=== PATIENT | female | born 1975 | race Caucasian/White ===

== ENCOUNTER 2016-09-29 21:22 | Inpatient (IN) | payer BC, OTHER ==
[~2016-09-29] VITALS: Ht 162.6 cm; Wt 61.4 kg
[~2016-09-29 21:22] MED LIST: DITROPAN XL10 MG PO; FLEXERIL 1010 MG/TAB PO; FLEXERIL10 MG PO; LORTAB 5/500 501 TAB PO; NATURE'S BLEND160 MG PO; ZEGERID 20 MG-11 CAP PO; [UNRECOGNIZED DRUG - OTHER]
[2016-09-29 21:52] LABS: BASO % 0.4 % (0.0-2.0); EOS # 0.1 (0.0-0.7); EOS % 0.6 % (0-4.0); GRAN # 6.1 (1.4-6.5); GRAN % 63.2 % (42.2-75.2); HEMATOCRIT 40.5 % (37.0-47.0); HEMOGLOBIN 14.2 g/dl (12.5-16.0); LYMPH # 2.9 (1.2-3.4); LYMPH % 30.1 % (20.0-51.0); MEAN CELL VOLUME 85 fl (80.0-100.0); MEAN CORPUSCULAR HEMOGLOBIN 30 pg (27.0-31.0); MEAN CORPUSCULAR HGB CONC 35 g/dl (33.0-37.0); MEAN PLATELET VOLUME 12.6 fl (7.4-10.4); MONO # 0.5 (0.1-0.6); MONO % 5.4 % (1.7-9.3); PLATELET COUNT 209 K/mm3 (130-400); RED BLOOD COUNT 4.74 M/mm3 (4.10-5.30); REDCELL DISTRIBUTION WIDTH-CV 11.7 % (11.5-14.5); WHITE BLOOD COUNT 9.6 K/mm3 (4.8-10.8)
[2016-09-29 22:15] LABS: ALANINE AMINOTRANSFERASE 24 U/L (9-52); ALKALINE PHOSPHATASE 73 U/L (50-136); ANION GAP 14 mmol/L (7-16); BILIRUBIN,TOTAL 0.9 mg/dL (0.0-1.0); BLOOD UREA NITROGEN 20 mg/dL (7-17); CALCIUM 9.9 mg/dL (8.4-10.2); CARBON DIOXIDE 19 mmol/L (22-30); CHLORIDE 108 mmol/L (98-107); GLUCOSE 106 mg/dL (74-106); LIPASE 240 U/L (23-300); POTASSIUM 3.4 mmol/L (3.4-5.0); SODIUM 141 mmol/L (137-145); TOTAL PROTEIN 8.3 gm/dL (6.4-8.2)
[2016-09-29 22:30] LABS: PROLACTIN 65.1 ng/mL (3.0-18.6)
[2016-09-29 22:35] LABS: ACETAMINOPHEN < 10 ug/mL (10-30); SALICYLATE < 1.0 mg/dL
[2016-09-29 22:47] LABS: ADJUSTED CALCIUM 9.3 mg/dL (8.4-10.2); ALBUMIN 4.8 gm/dL (3.5-5.0); CREATININE, serum 0.81 mg/dL (0.52-1.25)
[2016-09-29 22:49] LABS: C-REACTIVE PROTEIN < 0.5 mg/dL (0.0-0.9)
[2016-09-29 23:03] LABS: TROPONIN-I < 0.012 ng/mL (0.000-0.034)
[2016-09-29 23:30] LABS: PH 7 (5-8); SQUAMOUS EPITHELIAL 0-2 /hpf; URINE APPEARANCE Clear; URINE BACTERIA None Seen /hpf; URINE BILIRUBIN Negative (NEGATIVE); URINE BLOOD Negative (NEGATIVE); URINE COLOR Yellow; URINE GLUCOSE Negative (NEGATIVE); URINE KETONE 2+ (NEGATIVE); URINE RBC 0-2 /hpf; URINE UROBILINOGEN Negative (NEGATIVE)
[2016-09-29 23:37] LABS: AMPHETAMINE URINE NEGATIVE; BARBITURATES URINE NEGATIVE; BENZODIAZEPINES URINE POSITIVE; BUPRENORPHINE URINE NEGATIVE; METHADONE URINE NEGATIVE; OPIATES URINE NEGATIVE; OXYCODONE URINE NEGATIVE; PHENCYCLIDINE URINE NEGATIVE; PROPOXYPHENE URINE NEGATIVE; THC CANNABINOIDS URINE POSITIVE
[2016-09-30] VITALS (641 sets, daily range): BP systolic 91–130; BP diastolic 55–94; PULSE 52–61; TEMP 97–98.6; O2SAT 90–100
[2016-10-01 03:37] VITALS: BP 107/68; PULSE 57; TEMP 97.9
[2016-10-01 04:52] VITALS: BP 139/90; PULSE 74; TEMP 97.8
[2016-10-01 05:32] LABS: MAGNESIUM 2.2 mg/dL (1.6-2.3)
[2016-10-01 05:46] LABS: TROPONIN-I < 0.012 ng/mL (0.000-0.034)
[2016-10-01 05:50] LABS: PROLACTIN 36.6 ng/mL (3.0-18.6)
[2016-10-01 08:47] VITALS: BP 132/81; PULSE 52; TEMP 98.4
[2016-10-01 12:20] VITALS: BP 105/60; PULSE 78; TEMP 98.4
[2016-10-01 17:03] VITALS: BP 118/67; PULSE 63; TEMP 98.3
[2016-10-01 19:44] VITALS: BP 115/75; PULSE 62; TEMP 98
[2016-10-02] VITALS: BP 102/59; PULSE 62; TEMP 98.2
[2016-10-02 04:01] VITALS: BP 99/64; PULSE 50; TEMP 97.6
[2016-10-02 07:50] VITALS: BP 91/62; PULSE 53; TEMP 98.8
[2016-10-02 11:15] VITALS: BP 114/64; PULSE 67; TEMP 97.7
[2016-10-02] MEDS ORDERED: NICODERM C21 MG/PATC TD (14:38)
[2016-10-02] MEDS ORDERED: NICORETTE GUM2 MG BC (14:39)
[2016-10-02] MEDS ORDERED: GICOCKTAIL PO (14:39)
[2016-10-02] MEDS ORDERED: IBU800 M1 PO (14:40)
[2016-10-02] MEDS ORDERED: TYLENOL 325MG325 MG PO (14:40)
[2016-10-02] MEDS ORDERED: KEPPRA 500MG500 MG PO (14:40)
[2016-10-02] MEDS ORDERED: ATIVAN 2MG/ML2 MG/ML IV (14:41)
[2016-10-02] MEDS ORDERED: DEPACON100 MG/ML IV (14:41)
[2016-10-02] MEDS ORDERED: ZOFRAN INJ4 MG/2 ML IV (14:42)
[2016-10-02 15:34] VITALS: BP 114/64; PULSE 67; TEMP 97.7
== END 2016-10-02 16:36 | disposition home or self-care (01) | DRG 101 ==
LOC: COL.ER 21:22 → MEDICAL 23:13 → COL.ER 23:13 → ICU 23:13 → MEDICAL 09-30 14:45 → ICU 09-30 14:45 → MEDICAL 09-30 14:45
PROVIDERS: Emergency Medicine; Psychiatry & Neurology Neurology
DX: G40.209 Localization-related (focal) (partial) symptomatic epilepsy and epileptic syndromes with complex partial seizures, not intractable, without status epilepticus (principal); K21.9 Gastro-esophageal reflux disease without esophagitis; N30.10 Interstitial cystitis (chronic) without hematuria; F17.210 Nicotine dependence, cigarettes, uncomplicated; S06.9X0S Unspecified intracranial injury without loss of consciousness, sequela; V89.2XXS Person injured in unspecified motor-vehicle accident, traffic, sequela
CPT/HCPCS: OP; 90791-AI; 99222-AI; 99233-AI; 99239; A9585; J1953; J2060; J2270; J2405; J7030; Q9967